=== PATIENT | female | born 1995 | race Caucasian/White ===

== ENCOUNTER 2017-12-09 19:39 | Inpatient (IN) | payer OTHER ==
[2017-12-09] MEDS ORDERED: CARBOPROST TROMETHAMINE 250 MCG/ML 1 ML AMP IM PRN (20:01)
[2017-12-09] MEDS ORDERED: TERBUTALINE 1 MG/ML VIAL SQ PRN (20:01)
[2017-12-09] MEDS ORDERED: PENICILLIN G POTASSIUM 5,000,000 UNIT in DEXTROSE 5% IN WATER 100 ML IVPB STA ×2 (20:01)
[2017-12-09] MEDS ORDERED: METHYLERGONOVINE 0.2 MG/ML 1 ML AMP IM PRN (20:01)
[2017-12-09] MEDS ORDERED: OXYTOCIN 10 UNIT/ML 1 ML VIAL IM PRN (20:01)
[2017-12-09] MEDS ORDERED: BUTORPHANOL 1 MG/ML 1 ML VIAL IV PRN (20:08)
[2017-12-09] MEDS ORDERED: LACTATED RINGERS 1,000 ML IV SCH (20:15)
[2017-12-09 21:31] VITALS: BMI 22.6
[2017-12-09 21:34] LABS: Basophils % (A) 0 %; Eosinophils % (A) 0 %; HCT 31.9 % (34.0-46.0); HGB 10.7 gm/dL (11.4-16.0); Lymphocytes # (A) 1.4 k/uL (1.0-4.8); Lymphocytes % (A) 15 %; MCHC 33.5 g/dL (31.0-37.0); MCV 98.4 fL (80.0-100.0); Mean Platelet Volume 9.7; Monocytes # (A) 0.5 k/uL (0-1.0); Monocytes % (A) 6 %; Neutrophils # (A) 7.6 k/uL (1.3-7.7); Neutrophils % (A) 78 %; Platelet Count 154 k/uL (150-450); RBC 3.24 m/uL (3.80-5.40); RDW 14.4 % (11.5-15.5); WBC 9.7 k/uL (3.8-10.6)
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
[2017-12-10] MEDS ORDERED: PENICILLIN G POTASSIUM 2,500,000 UNIT in DEXTROSE 5% IN WATER 100 ML IVPB SCH ×2 (00:01)
[2017-12-10] MEDS: LIDOCAINE 0.5% (PF) 5 MG/ML (50 ML SDV) SQ PRN ×2 (00:29→09:14)
[2017-12-10] MEDS ORDERED: BENZOCAINE/MENTHOL SPRAY 1 GM/SPRAY AEROSOL TOPICAL PRN (00:41)
[2017-12-10] MEDS ORDERED: ZOLPIDEM 5 MG TAB PO PRN (00:41)
[2017-12-10] MEDS ORDERED: WITCH HAZEL 1 EACH MED..PAD TOPICAL PRN (00:41)
[2017-12-10] MEDS ORDERED: diphenhydrAMINE 25 MG CAP PO PRN (00:41)
[2017-12-10] MEDS ORDERED: SIMETHICONE 80 MG CHEWABLE PO PRN (00:41)
[2017-12-10] MEDS ORDERED: HYDROCORTISONE 2.5% RECTAL CREAM 30 GM TUBE RECTAL PRN (00:41)
[2017-12-10] MEDS ORDERED: LANOLIN CREAM 5 GM TUBE TOPICAL PRN (00:41)
[2017-12-10] MEDS ORDERED: diphenhydrAMINE 50 MG/ML 1 ML VIAL IVP PRN ×2 (00:41)
[2017-12-10] MEDS ORDERED: diphenhydrAMINE 50 MG CAP PO PRN (00:41)
[2017-12-10] MEDS ORDERED: OXYTOCIN 20 UNITS/1000 ML NS 1,000 ML IV SCH (00:45)
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
[2017-12-10] MEDS: IBUPROFEN 600 MG TAB PO PRN ×3 (00:58→15:54)
[2017-12-10 01:12] VITALS: RESP 16
[2017-12-10] MEDS: ACETAMINOPHEN TAB 325 MG TAB PO PRN ×2 (02:14→20:50)
[2017-12-10] MEDS: SENNOSIDES-DOCUSATE SODIUM 1 EACH TAB PO SCH ×2 (08:02→20:05)
--- NOTE | 2017-12-10 08:04 | P.PNOBGVD ---
Subjective - Subjective Principal diagnosis: PPD0 Interval history: Patient has done well since delivery. She is ambulating and voiding without difficulty. She states her pain is well-controlled with oral pain medication. She states her lochia is minimal. She denies concerns at this time. Patient reports: Reports appetite normal, Reports voiding normally, Reports pain well controlled, Reports ambulating normally [place]: doing well, nursing well Objective - Latest Vital Signs Latest vital signs: Vital Signs Temp Pulse Resp BP 12/10/17 04:00 98.3 F 85 16 121/64 12/10/17 02:35 96 16 122/77 12/10/17 02:05 92 16 118/73 12/10/17 01:35 83 16 129/80 12/10/17 01:20 96 16 134/74 12/10/17 01:05 97 16 134/79 12/10/17 00:50 105 H 16 125/81 12/10/17 00:35 98.0 F 111 H 18 132/98 12/09/17 21:25 98.2 F 84 16 132/81 12/09/17 19:55 98.2 F 84 16 132/81 Intake and Output 12/09/17 12/10/17 12/10/17 22:59 06:59 14:59 Intake Total 100 Balance 100 Intake: Intake, IV Titration 100 Amount Penicillin G Potassium 5, 100 000,000 unit In Dextrose 5% in Water 100 ml @ 100 mls/hr IVPB ONCE STA Rx#: [id number] Other: # Voids 1 1 1 Weight 63.503 kg - Exam Extremities: Present: normal Abdomen: Present: soft Uterus: Present: firm - Labs Labs: Abnormal Lab Results - Last 24 Hours (Table) 12/09/17 Range/Units 20:50 RBC 3.24 L (3.80-5.40) m/uL Hgb 10.7 L (11.4-16.0) gm/dL Hct 31.9 L (34.0-46.0) % Assessment and Plan (1) Term Current Visit: Yes Status: Acute Code(s): Z34.80 - ENCOUNTER FOR SUPRVSN OF NORMAL , UNSP TRIMESTER SNOMED Code(s): 64767344 (2) Positive GBS test Current Visit: Yes Status: Acute Code(s): B95.1 - STREPTOCOCCUS, GROUP B, CAUSING DISEASES CLASSD [facility] SNOMED Code(s): 3765089577464 (3) Status post vaginal delivery Current Visit: Yes Status: Acute Code(s): [id number] - SNOMED Code(s): 053475478 Plan: Doing well we will continue routine care and anticipate discharge home tomorrow morning.
[2017-12-10 09:54] LABS: Basophils % (A) 0 %; Eosinophils % (A) 0 %; HCT 28.8 % (34.0-46.0); HGB 9.6 gm/dL (11.4-16.0); Lymphocytes # (A) 1.1 k/uL (1.0-4.8); Lymphocytes % (A) 6 %; MCH 32.1 pg (25.0-35.0); MCHC 33.3 g/dL (31.0-37.0); MCV 96.5 fL (80.0-100.0); Mean Platelet Volume 10.8; Monocytes # (A) 0.8 k/uL (0-1.0); Monocytes % (A) 5 %; Neutrophils # (A) 15.2 k/uL (1.3-7.7); Neutrophils % (A) 88 %; Platelet Count 139 k/uL (150-450); RBC 2.98 m/uL (3.80-5.40); RDW 14.3 % (11.5-15.5); WBC 17.3 k/uL (3.8-10.6)
[2017-12-10] MEDS ORDERED: ceFAZolin 2,000 MG in DEXTROSE/WATER 1 50ML.BAG IVPB STA (11:57)
[2017-12-10] MEDS ORDERED: ceFAZolin IN SWFI 2 GM/20 ML SYRINGE IVP STA (12:02)
--- NOTE | 2017-12-10 15:47 | P.PNOBGVD ---
Subjective - Subjective Principal diagnosis: PPD 0 , vaginal bleeding Patient reports: Reports appetite normal, Reports voiding normally, Reports dizzy ambulation, Reports pain well controlled, Reports ambulating normally : doing well, nursing well Objective - Latest Vital Signs Latest vital signs: Vital Signs Temp Pulse Pulse Resp BP Pulse Ox 12/10/17 12:00 98.2 F 123 H 16 99/59 99 12/10/17 09:52 98.1 F 107 H 16 106/72 12/10/17 08:45 100 83 16 110/66 12/10/17 08:00 97.5 F L 86 16 122/79 12/10/17 04:00 98.3 F 85 16 121/64 12/10/17 02:35 96 16 122/77 12/10/17 02:05 92 16 118/73 12/10/17 01:35 83 16 129/80 12/10/17 01:20 96 16 134/74 12/10/17 01:05 97 16 134/79 12/10/17 00:50 105 H 16 125/81 12/10/17 00:35 98.0 F 111 H 18 132/98 12/09/17 21:25 98.2 F 84 16 132/81 12/09/17 19:55 98.2 F 84 16 132/81 Intake and Output 12/10/17 12/10/17 12/10/17 06:59 14:59 22:59 Other: # Voids 1 1 - Exam Extremities: Present: normal Abdomen: Present: soft Uterus: Present: firm Comments: Called to evaluate this patient earlier this morning for increase in vaginal bleeding after she ambulated to the bathroom. On inspection the lower aspect of the midline perineal laceration was noted to be bleeding. This was repaired with 3-0 Vicryl Rapide in a [id number] fashion. A proximally 3 figure-of- eight's were used to obtain hemostasis. Afterwards hemostasis was appreciated a rectal exam was performed no abnormalities were noted. - Labs Labs: Abnormal Lab Results - Last 24 Hours (Table) 12/09/17 12/10/17 Range/Units 20:50 07:00 WBC 17.3 H (3.8-10.6) k/uL RBC 3.24 L 2.98 L (3.80-5.40) m/uL Hgb 10.7 L 9.6 L (11.4-16.0) gm/dL Hct 31.9 L 28.8 L (34.0-46.0) % Plt Count 139 L (150-450) k/uL Neutrophils # 15.2 H (1.3-7.7) k/uL Assessment and Plan (1) Term Current Visit: Yes Status: Acute Code(s): Z34.80 - ENCOUNTER FOR SUPRVSN OF NORMAL , UNSP TRIMESTER SNOMED Code(s): 67750381 (2) Positive GBS test Current Visit: Yes Status: Acute Code(s): B95.1 - STREPTOCOCCUS, GROUP B, CAUSING DISEASES CLASSD [facility] SNOMED Code(s): 1965685843121 (3) Status post vaginal delivery Current Visit: Yes Status: Acute Code(s): NSJ3875 - SNOMED Code(s): 631835273 (4) Vaginal laceration Current Visit: Yes Status: Acute Code(s): S31.41XA - LACERATION W/O FOREIGN BODY OF VAGINA AND VULVA, INIT ENCNTR SNOMED Code(s): 482455635 (5) Anemia affecting Current Visit: Yes Status: Acute Code(s): O99.019 - ANEMIA COMPLICATING , UNSPECIFIED TRIMESTER SNOMED Code(s): 28157475 (6) Acute blood loss anemia Current Visit: Yes Status: Acute Code(s): D62 - ACUTE POSTHEMORRHAGIC ANEMIA SNOMED Code(s): 948031335 Plan: Will give a bolus of LR as she is dizzy with ambulation to the bathroom, stat CBC to evaluate hemoglobin. Discussed with patient if it does drop and she remains symptomatic with ambulation 1 unit of packed red blood cells ,aybe necessary. She was noted to be anemic prior to delivery with a hemoglobin of 10. Vaginal bleeding has been stable since repair was completed this morning.
[2017-12-10] MEDS ORDERED: LACTATED RINGERS 1,000 ML IV SCH (16:00)
[2017-12-10] MEDS: ceFAZolin 1,000 MG in DEXTROSE/WATER 1 50ML.BAG IVPB SCH ×2 (16:37→20:05)
[2017-12-10 16:53] LABS: MCH 33.9 pg (25.0-35.0); MCHC 34.8 g/dL (31.0-37.0); MCV 97.4 fL (80.0-100.0); Mean Platelet Volume 9.3; Platelet Count 131 k/uL (150-450); RBC 2.04 m/uL (3.80-5.40); RDW 14.5 % (11.5-15.5)
[2017-12-10 17:02] LABS: HCT 19.9 % (34.0-46.0); HGB 6.9 gm/dL (11.4-16.0)
[2017-12-10] MEDS: FERROUS SULFATE 325 MG TAB PO SCH (17:55)
[2017-12-10 18:49] LABS: HIV 1 AB Non-Reactive (Non-Reactive); HIV AB P24 Non-Reactive (Non-Reactive); HIV P24 AG Non-Reactive (Non-Reactive)
[2017-12-11] MEDS: IBUPROFEN 600 MG TAB PO PRN ×2 (00:04→08:20)
[2017-12-11] MEDS: ceFAZolin 1,000 MG in DEXTROSE/WATER 1 50ML.BAG IVPB SCH ×4 (00:05→12:04)
[2017-12-11] MEDS: ACETAMINOPHEN TAB 325 MG TAB PO PRN (04:01)
[2017-12-11 08:15] LABS: Basophils % (A) 0 %; Eosinophils # (A) 0.1 k/uL (0-0.7); Eosinophils % (A) 1 %; HCT 21.6 % (34.0-46.0); HGB 7.1 gm/dL (11.4-16.0); Lymphocytes # (A) 2.1 k/uL (1.0-4.8); Lymphocytes % (A) 18 %; MCH 32.4 pg (25.0-35.0); MCHC 33.2 g/dL (31.0-37.0); MCV 97.8 fL (80.0-100.0); Mean Platelet Volume 10.2; Monocytes # (A) 0.5 k/uL (0-1.0); Monocytes % (A) 5 %; Neutrophils # (A) 8.5 k/uL (1.3-7.7); Neutrophils % (A) 75 %; Platelet Count 146 k/uL (150-450); RDW 14.8 % (11.5-15.5); WBC 11.4 k/uL (3.8-10.6)
[2017-12-11] MEDS: FERROUS SULFATE 325 MG TAB PO SCH (08:20)
[2017-12-11 09:23] VITALS: BP 106/66; PULSE 99; TEMP 98.5
--- NOTE | 2017-12-11 10:41 | P.DS ---
Providers Date of admission: 12/09/17 19:55 Expected date of discharge: 12/11/17 Attending physician: Richelle Maurice Primary care physician: Stated None - Discharge Diagnosis(es) (1) Acute blood loss anemia Current Visit: Yes Status: Acute (2) Status post vaginal delivery Current Visit: Yes Status: Acute (3) Term Current Visit: Yes Status: Acute (4) Vaginal laceration Current Visit: Yes Status: Acute Hospital Course: This is a 22-year-old 2 now para 2 woman who presented at approximately 38 weeks gestation in spontaneous active labor. [place] and had not received care in this area. Following admission she underwent artificial rupture of membranes at 6 cm dilated. She went on to have a spontaneous vaginal delivery with a second-degree perineal laceration. Please see the delivery summary for details. Sometime after delivery the patient was up to the bathroom and experience an increase in vaginal bleeding. Evaluation revealed that the perineal repair was actively bleeding and additional sutures were placed. This controlled the bleeding. Post laceration hemoglobin was 6.9 however the patient was otherwise hemodynamically stable. By the morning of post day #1 she continued to do well. She had no further bleeding from her laceration. The perineum was inspected and some swelling and ecchymosis was noted however no active bleeding or gross hematoma was appreciated. Her repeat hemoglobin stayed stable at 7.1. She was ambulating and voiding without difficulty otherwise. She was therefore discharged home pending completion of postdelivery antibiotics Procedures: Normal spontaneous vaginal delivery and repair of secondary perineal laceration Patient Condition at Discharge: Good Plan - Discharge Summary New Discharge Prescriptions: No Action Pnv No.95/Ferrous Fum/Folic AC [ Multivitamin Tablet] 1 each PO DAILY Discharge Medication List Pnv No.95/Ferrous Fum/Folic AC [ Multivitamin Tablet] 1 each PO DAILY [History] Follow up Appointment(s)/Referral(s): Richelle Maurice DO [Doctor of Osteopathic Medicine] - 1 Week Activity/Diet/Wound Care/Special Instructions: Follow-up in the office in 6 weeks . Call with any concerning signs or symptoms including heavy vaginal bleeding, severe abdominal pain, fever greater than 101, swelling or redness of the lower extremities, foul vaginal discharge, or signs of depression. Nothing in the vagina for 6 weeks after delivery, specifically no intercourse.
== END 2017-12-11 16:15 | disposition home or self-care (01) | DRG 775 ==
LOC: FBPOP 19:39 → 4FBP 19:55
PROVIDERS: ADMIT Obstetrics & Gynecology Obstetrics; ATTEND Obstetrics & Gynecology Obstetrics
PROC: 10E0XZZ Delivery of Products of Conception, External Approach (ICD-10-PCS; principal; 2017-12-09)
PROC: 0KQM0ZZ Repair Perineum Muscle, Open Approach (ICD-10-PCS; 2017-12-09)
PROC: 0KQM0ZZ Repair Perineum Muscle, Open Approach (ICD-10-PCS; 2017-12-10)
DX: O99.824 Streptococcus B carrier state complicating childbirth (principal); D62 Acute posthemorrhagic anemia; O99.02 Anemia complicating childbirth; O69.81X0 Labor and delivery complicated by cord around neck, without compression, not applicable or unspecified; O75.89 Other specified complications of labor and delivery; O70.1 Second degree perineal laceration during delivery; O62.2 Other uterine inertia; Z3A.38 38 weeks gestation of pregnancy; Z37.0 Single live birth; Z83.3 Family history of diabetes mellitus; Z79.899 Other long term (current) drug therapy; Z83.49 Family history of other endocrine, nutritional and metabolic diseases
CPT/HCPCS: 59025; 85025; 85027; 86592; 86762; 86780; 87340; 87390; 99213